=== PATIENT | female | born 1995 | race Caucasian/White ===

== ENCOUNTER 2018-10-02 09:55 | Emergency (ER) | payer OTHER ==
[2018-10-02] MEDS: IBUPROFEN LIQUID (PED) 20 MG/ML CUP PO (10:23)
== END 2018-10-02 10:51 | disposition home or self-care (01) ==
LOC: FTE 09:55
DX: J03.90 Acute tonsillitis, unspecified (principal)
CPT/HCPCS: 99283; Z7502